=== PATIENT | female | born 1990 | race Caucasian/White ===

== ENCOUNTER → 2018-02-28 12:50 | Outpatient (CLI) | payer SELFPAY ==
--- NOTE | 2018-02-28 13:46 | US_ITS ---
STUDY: ULTRASOUND TRANSVAGINAL CLINICAL: Female, 27 years old. Pelvic pain. Dyspareunia. TECHNIQUE: Transvaginal COMPARISON: None. FINDINGS: The uterus is within normal limits in size and measures 8.0 x 4.1 x 3.2 cm with an endometrial stripe thickness of 3 mm. Both ovaries are visualized and demonstrate normal Doppler flow. The right measures 2.9 x 3.2 x 1.7 cm and the left 2.5 x 2.1 x 1.3 cm. There are no abnormal adnexal masses. A small amount of free fluid is in the cul-de-sac.. US/Pelvic (Non ) IMPRESSION: The study is within normal limits except for a small amount of free fluid in the cul-de-sac Electronically Signed: Anthony Ocampo MD at 4:22 EDT Tel , Service support ,
--- NOTE | 2018-02-28 13:47 | US_ITS ---
STUDY: ULTRASOUND TRANSVAGINAL CLINICAL: Female, 27 years old. Pelvic pain. Dyspareunia. TECHNIQUE: Transvaginal COMPARISON: None. FINDINGS: The uterus is within normal limits in size and measures 8.0 x 4.1 x 3.2 cm with an endometrial stripe thickness of 3 mm. Both ovaries are visualized and demonstrate normal Doppler flow. The right measures 2.9 x 3.2 x 1.7 cm and the left 2.5 x 2.1 x 1.3 cm. There are no abnormal adnexal masses. A small amount of free fluid is in the cul-de-sac.. US/Transvaginal Non- IMPRESSION: The study is within normal limits except for a small amount of free fluid in the cul-de-sac Electronically Signed: Anthony Ocampo MD at 4:22 EDT Tel , Service support ,
== END ==
PROVIDERS: Family Provider Physician Assistant; PCP Physician Assistant; Referring Provider Urology; Visit Provider Urology
DX: N39.0 Urinary tract infection, site not specified (principal); N94.12 Deep dyspareunia; R10.2 Pelvic and perineal pain
CPT/HCPCS: 76830; 76856

== ENCOUNTER → 2018-03-26 10:41 | Outpatient (CLI) | payer SELFPAY ==
--- NOTE | 2018-03-26 10:45 | US_ITS ---
STUDY: RENAL ULTRASOUND - COMPLETE REASON FOR EXAM: Female, 27 years old. Recurring UTI. Lower mid abdominal pain. TECHNIQUE: Ultrasound evaluation of the kidneys was performed with real-time and static johnson-scale imaging. COMPARISON: None. FINDINGS: RIGHT KIDNEY: Normal location of the right kidney, which is normal in size. The right kidney measures 11 cm. There is a normal cortex of the right kidney. The renal cortex measures 1.7 cm. There is no right renal mass or cyst. There are no right renal calculi. There is an extra-renal pelvis of the right kidney. There is no distention of the renal calyces. DISTAL RIGHT URETER: There is non-visualization of the distal right ureter. There is no demonstrated right ureterovesical junction calculus. There is a visualized right ureteral jet. LEFT KIDNEY: Normal location of the left kidney, which is normal in size. The left kidney measures 11.4 cm. There is a normal cortex of the left kidney. The renal cortex measures 1.7 cm. There is a 0.9 x 1.1 x 1.0 cm exophytic cyst off the mid cortex. There are no left renal calculi. There is no left hydronephrosis. DISTAL LEFT URETER: There is non-visualization of the distal left ureter. There is no demonstrated left ureterovesical junction calculus. There is a visualized left ureteral jet. The spleen appears mildly enlarged with a maximum diameter of 12.9 cm. There is no evidence of splenic mass. BLADDER: The distended urinary bladder has a volume of 159 ml. The empty urinary bladder has a volume of ml. There is a normal wall thickness of the distended urinary bladder. There is no demonstrated mass within the urinary bladder. There are no demonstrated bladder calculi. US/Kidney and Bladder IMPRESSION: 1. Left renal cyst. There is no other evidence of renal or urinary bladder abnormality. 2. Borderline splenomegaly. Electronically Signed: Hector Fay DO at 19:53 EST Tel [phone], Service support ,
== END ==
PROVIDERS: Family Provider Physician Assistant; PCP Physician Assistant; Referring Provider Urology; Visit Provider Urology
DX: N39.0 Urinary tract infection, site not specified (principal)
CPT/HCPCS: 76770

== ENCOUNTER → 2024-01-01 | Outpatient (CLI) | payer SELFPAY ==
--- NOTE | 2024-01-01 | IMM_PTH ---
PATIENT: HAL SHARIF LOC: [facility] U#:[id number] AGE/SX: 33/F ROOM: RE01/01/[address]: Dr. Juan J Pierre MD : 1990 BED: DIS: 01/01/2024 SPEC #: [id number] RECD: 01/03/24 11:12 STATUS: GOYO REQ #: [id number] RY: 01/01/24 00:[address]: Juan J Pierre DEPT: IMMUNOHISTOCHEMISTRY RECD BY: Kris Goodman ENTERED: 01/03/24 11:13 SP TYPE: IMMUNO OTHR DR: SHAREE Alejandre Tissues: C - Thyroid gland, NOS Procedures: HBME (initial) CD56 (add) CK19 (add) GAL-3 (add) PHYSICIAN & INSTITUTION [place] [phone] SPECIMEN INFORMATION: Tissue Source: C- Right lower thyroid nodule fluid Clinical Info: Right thyroid nodule Specimen Number: [id number] CPT code: 46322,32182q9 METHODOLOGY: Deparaffinized sections of prefer/formalin-fixed tissue or PAP/DQ stained slides are incubated with monoclonal/polyclonal antibodies/oligonucleotide probes. Localization is made via biotin free immunoperoxidase method. Appropriate controls are performed and reacted as expected. Results on target cell population are indicated in the following table: RESULTS: ANTIBODY / CLONE RESULT Block C HBME1 (HBME-1) positive, focal CK19 (A53-B/A2.26) positive GAL3 (9C4) negative CD56 (123C3.D5) positive These tests were developed and their performance characteristics determined by [facility]. They may not have been cleared or approved by the U.S. Food and Drug Administration. The FDA has determined that such clearance or approval is not necessary. The above immunohistochemical/dualISH markers are ordered and reviewed by the Pathologist. INTERPRETATION: C. Right thyroid nodule fluid, fine needle aspiration (cytospin and cellblock): Atypical follicular cells of undetermined significance. LADARIUS/ 01/04/2024
--- NOTE | 2024-01-01 14:00 | ASPIG_PTH ---
PATIENT: HAL SHARIF LOC: [facility] U#:[id number] AGE/SX: 33/F ROOM: RE01/01/[address]: Dr. Juan J Pierre MD : 1990 BED: DIS: 01/01/2024 SPEC #: [id number] RECD: 01/01/24 15:30 STATUS: GOYO TAVARES #: [id number] RY: 01/01/24 14:[address]: Juan J Pierre DEPT: CYTOLOGY RECD BY: Elvin Toledo ENTERED: 01/02/24 06:52 SP TYPE: ASP OUT OTHR DR: SHAREE Alejandre Tissues: A - Thyroid gland, NOS B - Thyroid gland, NOS C - Thyroid gland, NOS D - Thyroid gland, NOS Procedures: FNA Specimen Adequacy Special Stain Group II Surgery Specimen Level IV Cytology Other HEADER OPERATION: Fine needle aspiration of right thyroid nodule x2 PRE-OP DIAGNOSIS: Right thyroid nodule TISSUE SUBMITTED: A- Right mid polar thyroid nodule fluid, B- Right mid polar thyroid nodule slides, C- Right lower thyroid fluid, D- Right lower thyroid slides DIAGNOSIS CYTOLOGY A. Right mid polar thyroid nodule, fine needle aspiration (cytospin and cellblock): Negative for malignant cells. See comment. B. Right mid polar thyroid nodule, fine needle aspiration (smears): Non-diagnostic specimen, [place] Category I. Cyst fluid only. See comment. C. Right lower thyroid nodule fluid, fine needle aspiration (cytospin and cellblock): Atypical follicular cell with undetermined significance, [place] Category III. See comment. D. Right thyroid nodule, fine needle aspiration (smears): Atypical follicular cells with undetermined significance, [place] Category III. Adequate for evaluation. See comment. LADARIUS/ 01/03/2024 COMMENT A. This specimen is paucicellular and consists of a few macrophages. B. This specimen predominantly consists of macrophages. C. Immunohistochemistry ([id number]) supports the above diagnosis. Per recommendations and a clinician-approved plan (a call was made to the referring doctor about the recommendation), genomic testing (Afirma) has been submitted. Results will be reported as an addendum and faxed to clinician. Correlation with clinical, radiologic findings and appropriate follow up are necessary. Case has been reviewed in consultation with Dr. Ochoa who concurs with the above diagnosis. IDC:AM CYTOLOGY STUDY Slides are reviewed. CYTOLOGY GROSS A. Received is 30 ml of red fluid labeled with the patient's name and and designated per the requisition as Right mid polar thyroid nodule. Submitted for cytology preparation including cell block. B. Received are 4 smears labeled with the patient's name and designated per the requisition as Right mid polar thyroid nodule. Submitted for staining. C. Received is 30 ml of red fluid labeled with the patient's name and and designated per the requisition as Right lower thyroid nodule. Submitted for cytology preparation including cell block. D. Received are 4 smears labeled with the patient's name and designated per the requisition as Right lower thyroid nodule. Submitted for staining. 01/02/2024 TC:5 CPT: 17104f3,86453z0 ADDENDUM ADDENDUM ADDENDUM ADDENDUM ADDENDUM ADDENDUM ADDENDUM ADDENDUM ADDENDUM 02/23/2024 10:02 ADDENDUM 02/23/2024 10:02 ADDENDUM 02/23/2024 10:02 ADDENDUM 02/23/2024 10:02 ADDENDUM 02/23/2024 10:02 AFIRMA RESULTS REPORT RESULTS INTERPRETATION: The result of this 1.7 cm [place] III nodule C is Afirma GSC Suspicious which suggests a risk of cancer of approximately 50%. The risk of Malignancy of a GSC Suspicious Afirma XA negative sample remains approximately 50%. Clinical correlation and surgical resection should be considered. Please see complete report in e-chart or EMR
== END | disposition home or self-care (01) ==
PROVIDERS: PCP Physician Assistant; Referring Provider Surgery; Visit Provider Surgery
DX: E04.1 Nontoxic single thyroid nodule (principal)
CPT/HCPCS: 88161; 88172; 88305; 88313; 88341; 88342

== ENCOUNTER → 2024-01-25 | Outpatient (CLI) | payer SELFPAY ==
--- NOTE | 2024-01-25 13:25 | US_ITS ---
STUDY: THYROID ULTRASOUND REASON FOR EXAM: Female, 33 years old. Thyroid cancer, nodules TECHNIQUE: Ultrasound evaluation of the thyroid was performed with real-time and static brown-scale imaging. COMPARISON: None. FINDINGS: RIGHT LOBE: The right lobe of the thyroid gland measures 5.4 x 3 x 2.4 cm. There is a heterogeneous echotexture. Heterogeneous hypervascular mass with calcifications superior thyroid lobe on the right measuring 3.1 x 2.3 x 1.6 cm. There is also a 2.5 x 1.3 x 1.9 cm similar lesion in the inferior pole. LEFT LOBE: The left lobe of the thyroid gland measures 4.7 x 1.5 x 1.7 cm. There is a heterogeneous echotexture. Simple cystic lesion noted superiorly measuring 0.6 x 0.6 x 0.3 cm. ISTHMUS: The isthmus measures 0.25 cm . The regional lymph nodes are normal. US/Thyroid IMPRESSION: Thyroid goiter. Nuclear thyroid scan may be helpful for further characterization. FNA of the largest nodule recommended. Electronically Signed: Blair Verduzco MD at 0:42 EDT ,
== END | disposition home or self-care (01) ==
PROVIDERS: PCP Physician Assistant; Referring Provider Surgery; Visit Provider Surgery
DX: C73 Malignant neoplasm of thyroid gland (principal)
CPT/HCPCS: 76536

== ENCOUNTER → 2024-01-31 | Outpatient (CLI) | payer SELFPAY ==
--- NOTE | 2024-01-31 11:42 | US_ITS ---
EXAM: US Head/Neck Soft Tissue HISTORY: Evaluate Neck Zones -- Lymph node mapping COMPARISON: None FINDINGS: Sonographic evaluation of both halves of the neck There are scattered subcentimeter in short axis dimension lymph nodes present. Largest measured lymph nodes are in zone 3 of the left neck with the largest measuring 1.9 x 0.7 x 0.2 cm. In zone 6 of the right neck there is a hypoechoic mass measuring 1.3 x 0.9 x 0.5 cm, this does not have sonographic characteristics of a lymph node, instead has an echogenic structure within it measuring 3 x 5 mm with some microcalcifications and fluid. A short-term follow-up ultrasound of this is recommended to assess stability There are no suspicious enlarged bulky lymph nodes US/Head/Neck Soft Tissue IMPRESSION: No suspicious enlarged bulky lymph nodes. All measured lymph nodes measure less than 1 cm in short axis dimension and are likely physiologic. There is a hypoechoic 1.3 x 0.9 x 0.5 cm nodule in the right neck in zone 6 which does not demonstrate sonographic characteristics of a lymph node and short-term follow-up ultrasound is recommended to reassess Electronically Signed: Kimani Schwartz MD at 9:27 EDT ,
== END | disposition home or self-care (01) ==
PROVIDERS: PCP Physician Assistant; Referring Provider Surgery; Visit Provider Surgery
DX: E04.2 Nontoxic multinodular goiter (principal); E04.1 Nontoxic single thyroid nodule
CPT/HCPCS: 76536

== ENCOUNTER → 2024-02-22 | Outpatient (CLI) | payer SELFPAY ==
--- NOTE | 2024-02-22 | ASPIG_PTH ---
PATIENT: HAL SHARIF LOC: [facility] U#:[id number] AGE/SX: 33/F ROOM: RE02/22/[address]: Dr. Juan J iPerre MD : 1990 BED: DIS: 02/22/2024 SPEC #: [id number] RECD: 02/22/24 13:36 STATUS: GOYO TAVARES #: [id number] RY: 02/22/24 00:[address]: Juan J Pierre DEPT: CYTOLOGY RECD BY: Lamont Mejia ENTERED: 02/22/24 13:37 SP TYPE: ASP OUT OTHR DR: SHAREE Alejandre Tissues: A - Lymph node of neck, NOS B - Lymph node of neck, NOS Procedures: FNA Specimen Adequacy Special Stain Group II Surgery Specimen Level IV Surgery Specimen Level V Cytology Other HEADER OPERATION: Ultrasound guided lymph node biopsy PRE-OP DIAGNOSIS: Abnormal lymph node, Zone 3 (left), Zone 6 (right) TISSUE SUBMITTED: A- Right cervical lymph node, level 6, fine needle aspiration B- Left cervical lymph node, level 3, fine needle aspiration DIAGNOSIS CYTOLOGY A. Right cervical lymph node, zone 6, fine needle aspiration (smears, cytospin and cellblock): Negative for malignant cells. See comment. B. Left cervical lymph node, zone 3, fine needle aspiration (smears and cellblock): Negative for malignant cells. See comment. LADARIUS/ 02/23/2024 COMMENT The specimen is evaluated at the time of biopsy by Dr. Echeverria. Immediate Evaluation = A. Set #1: Bloody specimen, negative for malignant cells. Set #2: Bloody specimen, negative for malignant cells. Set #3: Bloody specimen, negative for malignant cells. B. Numerous lymphocytes are noted. A. This specimen is bloody. Lymphocytes are not seen. B. Numerous small lymphocytes are noted. This case was reviewed and diagnosis discussed with Dr. Pierre on 02/27/2024. Correlation with clinical, radiologic findings and appropriate follow up are necessary. Please also make reference to previous specimen [id number] right lower thyroid nodule fluid and smears, fine needle aspiration with diagnosis of atypical follicular cells of undetermined significance. CYTOLOGY STUDY Slides are reviewed. CYTOLOGY GROSS A. Set #1. Received from 2 passes are 5 smears, stained with diff quik stain for immediate evaluation and 5 smears submitted for pap staining and 0.7 ml of bloody fluid labeled with patient's name and and designated per the requisition as right cervical lymph node. zone 6 submitted for cytology study including cellblock preparation. Set #2. Received from 1 pass are 3 smears stained with diff quik stain for immediate evaluation and 3 smears submitted for pap staining and 0.2ml of bloody fluid labeled with the patient's name and and designated per the requisition as right cervical lymph node. zone 6 submitted for cytology study including cellblock preparation. Set #3. Received from 1 pass 2 smears submitted for diff quik stain for immediate evaluation and 2 smears submitted for pap staining and 0.2 ml of blood fluid labeled with the patient's name and and designated per the requisition as Right cervical lymph node zone 6. Submitted for cytology preparation including cell block. B. Received from two passed are 3 smears submitted for diff quik stain for immediate evaluation and 3 smears submitted for pap staining and 0.1 ml of bloody fluid labeled with the patient's name and and designated per the requisition as Left cervical lymph node. zone 3 Submitted cell block preparation. 02/22/2024 TC:5 CPT: 66190y5,36212h8,23731l7,46136f3,48827
--- NOTE | 2024-02-22 11:34 | US_ITS ---
STUDY: ULTRASOUND-GUIDED BIOPSY OF THE RIGHT APICAL NODULE. RIGHT REASON FOR EXAM: Female, 33 years old. ABNORMAL LYMPH NODE -RT TECHNIQUE: Under direct sonographic guidance, the surgeon performed ultrasound-guided biopsy of a 1.3 cm x 0.5 cm x 0.4 cm hypoechoic nodule in zone 6 of the right subapical region. COMPARISON: Comparison is made with prior study dated January 31, 2024. FINDINGS: Ultrasound-guided biopsy of a 1.3 cm x 0.5 cm x 2.4 cm hypoechoic nodule in zone 6 of the cervical region. Also biopsy of the 1.8 cm x 0.7 cm x 0.3 cm lymph node in zone 3. IMPRESSION: Ultrasound-guided right cervical nodules. Electronically Signed: Irving Osman MD at 14:23 EDT , STUDY: ULTRASOUND-GUIDED LEFT CERVICAL BIOPSY. LEFT REASON FOR EXAM: Female, 33 years old. ABNORMAL LYMPH NODE -RT TECHNIQUE: Under direct sonographic guidance, the surgeon performed biopsy of a lymph node in zone 3 of the left neck. COMPARISON: None. US/FNA 1st Biopsy w/ US IMPRESSION: Ultrasound-guided biopsy of the lymph node in zone 3 of the left side of the neck. Electronically Signed: Irving Osman MD at 14:24 EDT ,
[2024-02-22 12:30] VITALS: BP 121/68; PULSE 84; RESP 16; O2SAT 99
[2024-02-22 12:46] VITALS: BP 120/69; PULSE 83; RESP 14; O2SAT 97
[2024-02-22 13:00] VITALS: BP 113/69; PULSE 79; RESP 14; O2SAT 96
== END | disposition home or self-care (01) ==
PROVIDERS: PCP Physician Assistant; Referring Provider Surgery; Visit Provider Surgery
DX: R59.9 Enlarged lymph nodes, unspecified (principal)
CPT/HCPCS: 10005; 10006; 88161; 88172; 88305; 88307; 88313

== ENCOUNTER 2024-03-15 05:58 | Day surgery (SDC) | payer SELFPAY ==
--- NOTE | 2024-03-13 14:45 | NURSING ---
pt called to get home weatherizing worker name/number- pt sees a operations label clerk- info given to this nurse: shelbi wahl: [phone] operations label clerk called- and asked about care for pt/baby during/after/before surgery- she voiced concerns about pt having the surgery and how the baby is measureing and the fluid that mom is retaining- discussed with operations label clerk that this nurse is going to call dr gleason's office and have him call her to discuss these concerns. edna at dr. gleason's office took info and will let dr gleason know to call the operations label clerk to discuss the case.
[2024-03-15] VITALS (10 sets, daily range): BP systolic 101–116; BP diastolic 62–76; PULSE 77–109; RESP 16–18; TEMP 36.4–37.2; O2SAT 94–100; BMI 24.5
--- NOTE | 2024-03-15 | IMM_PTH ---
PATHOLOGY RESULTS PATIENT: HAL SHARIF LOC: [facility] [place] U#:[id number] AGE/SX: 33/F ROOM: RE03/15/[address]: Dr. Juan J Pierre MD : 1990 BED: DIS: 03/15/2024 SPEC #: [id number] RECD: 03/21/24 08:34 STATUS: GOYO REQ #: [id number] RY: 03/15/24 00:[address]: Juan J Pierre DEPT: IMMUNOHISTOCHEMISTRY RECD BY: Kris Goodman ENTERED: 03/21/24 08:35 SP TYPE: IMMUNO OTHR DR: SHAREE Alejandre Tissues: Thyroid gland, NOS Procedures: HBME (initial) CD56 (add) CK19 (add) GAL-3 (add) PHYSICIAN & INSTITUTION [place] [phone] SPECIMEN INFORMATION: Tissue Source: B- Right thyroid lobe and isthmus Clinical Info: Multiple thyroid nodules Specimen Number: [id number] CPT code: 82507,68831l19 METHODOLOGY: Deparaffinized sections of prefer/formalin-fixed tissue or PAP/DQ stained slides are incubated with monoclonal/polyclonal antibodies/oligonucleotide probes. Localization is made via biotin free immunoperoxidase method. Appropriate controls are performed and reacted as expected. Results on target cell population are indicated in the following table: RESULTS: ANTIBODY / CLONE RESULT Block B2 HBME1 (HBME-1) positive CK19 (A53-B/A2.26) positive GAL3 (9C4) positive CD56 (123C3.D5) positive Block B8 HBME1 (HBME-1) positive CK19 (A53-B/A2.26) positive GAL3 (9C4) positive CD56 (123C3.D5) positive Block B11 HBME1 (HBME-1) positive CK19 (A53-B/A2.26) positive GAL3 (9C4) positive CD56 (123C3.D5) positive These tests were developed and their performance characteristics determined by [facility]. They may not have been cleared or approved by the U.S. Food and Drug Administration. The FDA has determined that such clearance or approval is not necessary. The above immunohistochemical/dualISH markers are ordered and reviewed by the Pathologist. INTERPRETATION: B. Right thyroid lobe and isthmus, lobectomy and isthmectomy: Papillary thyroid carcinoma, classic type. See comment. COMMENT: The specimen was sent to [facility] for expert opinion and reviewed by Dr. Fenton and the above diagnosis is rendered. The complete report is viewable in the patient's EMR. This case has been reviewed in consultation with Dr. Butler who concurs with the above diagnosis. IDC:KARMA Matthew 03/27/2024
--- OUTSIDE RECORDS SUMMARY | 2024-03-15 06:01 | XMS RPT_ITS | CCD ---
Author Organization [facility] Care Team Providers Care Directory Carrier Name Role Phone Axel Burciaga MD Unavailable Axel Burciaga MD Unavailable Mehran DOVE, Dr. Hdz Unavailable Brad FERGUSON, Marguerite Morocho Unavailable [phone] [place] DOVE, Eber Perez Unavailable Jessie FERGUSON, Kurtis Howell Unavailable Alcon OCHOAN, Bhavani Unavailable Unavailable Amee GAY, Marbella Perez Unavailable Unavaila diogenes Mays MANUFACTURING TEAM LEADER, Rupa Unavailable Unavailable Cricket MANUFACTURING TEAM LEADER, Fredy Unavailable Unavailable Young FERGUSON, Jose E Morocho Unavailable Penny MANUFACTURING TEAM LEADER, Mariana Unavailable Unavailab tiffani Michaud LPN, Chanelle Unavailable Unavailabl e Unavailable Unavailable [facility] Unavailable Davina MANUFACTURING TEAM LEADER, Ana Rosa Unavailable Sophie MANUFACTURING TEAM LEADER, Maeve Monae Unavailable Unavailab JOSE E Murillo Attending Unavailable JOSE E VIDAL Primary Care Unavailable JOSE E VIDAL Admitting Unavailable JOSE E VIDAL Attending Unavailable JOSE E VIDAL Primary Care Unavailable JOSE E VIDAL Admitting Unavailable Mishel OCHOANStella Unavailable Unavailabl e Allergies Allergy Classification Reported Allergen(s) Allergy Type Date of Onset Reaction(s) Facility (18 sources) Magnesium *MINERALS & ELECTROLYTES* Rapid pulse [facility] Medications Current Medications Medication Drug Class(es) Dates Sig (Normalized) Sig (Original) amoxicillin 875 mg / clavulanate 125 mg oral tablet (2 sources) Penicillin-class Antibacterial Start: 02-21-2024 amoxicillin 875 mg-potassium clavulanate 125 mg tablet ; 1 (one) tablet BID for 7 days Quantity: 14 {Tablet} Refills: 0 Ordered: 21-Feb-2024 PHYLLIS Vidal Start: 21-Feb-2024 Completed/Discontinued Medications Medication Drug Class(es) Dates Sig (Normalized) Sig (Original) cephalexin 500 mg oral tablet (18 sources) Cephalosporin Antibacterial Start: 12-03-2021 End: 12-10-2021 take 2 tablets by mouth twice daily Cephalexin 500 MG Oral Tablet ; 2 (two) Tablet two times daily for 7 days Quantity: 28 {Tablet} Refills: 0 Ordered: 03-Dec-2021 PHYLLIS Salinas Start: 03-Dec-2021 End: 10-Dec-2021 Status: Inactive mupirocin 0.02 mg/mg topical ointment (18 sources) RNA Synthetase Inhibitor Antibacterial Start: 11-16-2022 End: 11-23-2022 mupirocin 2 % topical ointment ; 1 (one) Ointment three times daily for 7 days Quantity: 22 {Gram} Refills: 0 Ordered: 16-Nov-2022 PHYLLIS Roman Start: 16-Nov-2022 End: 23-Nov-2022 Status: Inactive sulfamethoxazole 800 mg / trimethoprim 160 mg oral tablet (18 sources) Dihydrofolate Reductase Inhibitor Antibacterial, Sulfonamide Antimicrobial Start: 01-28-2018 End: 01-31-2018 take 1 tablet by mouth twice daily Bactrim DS 800-160 MG Oral Tablet ; 1 (one) Tablet BID for 3 days Quantity: 6 {Tablet} Refills: 0 Ordered: 28-Jan-2018 MD Axel Burciaga Start: 28-Jan-2018 End: 31-Jan-2018 Status: Inactive Problems Active Problems Problem Classification Problem Date Documented Da te Episodic/Chronic Chronic obstructive pulmonary disease and bronchiectasis (4 sources) Bronchitis; Translations: [Bronchitis, not specified as acute or chronic] 02-21-2024 Episodic Genitourinary symptoms and ill-defined conditions (20 sources) History of urinary tract infection; Translations: [Personal history of urinary (tract) infections] 03-05-2020 Episodic Influenza (20 sources) Influenza due to Influenza A virus; Translations: [Influenza due to other identified influenza virus with other respiratory manifestations] 05-27-2021 Episodic Nonmalignant breast conditions (20 sources) Breast lump; Translations: [Unspecified lump in unspecified breast] 10-20-2023 Episodic Other upper respiratory infections (4 sources) Sinusitis; Translations: [Chronic sinusitis, unspecified] 02-21-2024 Chronic Ovarian cyst (20 sources) Cyst of ovary; Translations: [Unspecified ovarian cyst, unspecified side] Onset: 11-30-2023 10-20-2023 Episodic Residual codes; unclassified (20 sources) Family history of malignant neoplasm of breast in first degree relative; Translations: [Family history of malignant neoplasm of breast] 10-20-2023 Episodic Residual codes; unclassified (1 source) Family history of malignant neoplasm of breast; Translations: [Family history of malignant neoplasm of breast] Onset: 11-30-2023 Episodic Screening and history of mental health and substance abuse codes (20 sources) Patient encounter status; Translations: [Encounter for screening for depression] 10-20-2023 Episodic Skin and subcutaneous tissue infections (20 sources) Infection of skin; Translations: [Local infection of the skin and subcutaneous tissue, unspecified] 10-20-2023 Episodic Superficial injury; contusion (20 sources) Contusion of chest; Translations: [Contusion of unspecified front wall of thorax, initial encounter] 10-20-2023 Episodic Thyroid disorders (20 sources) Goiter; Translations: [Nontoxic goiter, unspecified] Onset: 11-30-2023 10-20-2023 Chronic Urinary tract infections (20 sources) Recurrent urinary tract infection; Translations: [Urinary tract infection, site not specified] 01-31-2018 Episodic Past or Other Problems Problem Classification Problem Date Documented Da te Episodic/Chronic Unclassified (18 sources) Well adult female - The patient feels well with no complaints. The first day of the last menstrual period was : (09/30/23). The patient has a balanced diet. The patient exercises 3 - 4 times per week. The patient sleeps 8 hours per night. Note for Well adult female : Estrogen receptor breast cancer in her 37 year old sister; told it was genetic but more details are not known. No other family history of breast cancer. No abnormal self breast exams. Grandma with possible ovarian mass remotely - details are unknown.Had a pap smear done by crochet machine operator. Thinks was within 3 years - even if due doesn't want to do today. 10-20-2023 Unclassified (18 sources) Rash - The rash has been occurring for 1 week. The rash is characterized as red. The rash was first seen on the face (Under right eye. Pt states looked like P.I. one week ago, cleaned area w/ lesly dish soap and turned black and blue. Has been using RENATO, does not itch but is not healing, scab keeps forming and keeps oozing.). There has been no progression. Note for Rash : Pt does not know where it came from. 11-16-2022 Unclassified (18 sources) Breast pain - The breast pain is in the right breast. The onset of the breast pain has been gradual and has been occurring in a persistent pattern for 5 days. The course has been constant. The breast pain is described as moderate. Note for Breast pain : pt has had a fever- the last day she had one was Monday night -- she said it was 105 that night pt is breast feeding her baby is 3 weeks old - she reports this has been going wellShe reports some redness and swelling in the right breast as well 12-03-2021 Unclassified (18 sources) Cold Symptoms - Symptoms include nasal congestion, runny nose, ear fullness, scratchy throat, dry cough, fever (around 100+ at home), chills, general malaise (fatigue and body aches), headache and facial pain, but do not include sneezing, ear pain, sore throat, hoarseness, productive cough or wheezing. The onset was gradual week(s) ago (1 wk ago started with tickle in throat States as of Monday all other symptoms have started.). The symptoms occur constantly. The patient describes this as moderate in severity and worsening. Current treatment includes none (herbs). Risk factors do not include child in daycare or smoking. The patient has been exposed to an individual with an upper respiratory infection and an individual with similar symptoms (her mother), but has not been exposed to an individual with strep or secondhand smoke. Patient denies history of seasonal allergies, recurrent sinusitis, recurrent strep pharyngitis, asthma, tonsillectomy or recurrent ear infections. Note for Upper respiratory infection : No known contact with positive COVID or influenza 05-27-2021 Unclassified (18 sources) Shoulder pain - The shoulder pain has been occurring in a persistent pattern for 8 days (patient was walking through a doorway, when she tripped and feel forward on cement and came down on the right shoulder area). The course has been gradually worsening (getting worse since Monday. Patient reached down to grab a bowel that was empty and felt a pop of the right upper chest(clavicle area).). The pain is characterized as a dull aching (becomes sharper with movement/lifting). The pain is described as being located in the right shoulder (right side) and is aggravated by any movement. Relieving factors include rest and medication (Tylenol and Aleve). The symptoms have been associated with painful ROM and decreased ROM. Note for Shoulder pain : Patient did see a chiropractor over the weekend but no xrays done.Has a 4 1/2 month old child that she is . 03-05-2020 Unclassified (18 sources) UTI - Symptoms include dysuria, urinary frequency, urinary urgency and abdominal pain (today), but do not include back pain. The pain is located in the suprapubic area. The patient describes the pain as aching. Onset was gradual 3 day(s) ago. The symptoms occur constantly. The patient describes this as moderate in severity and worsening. Associated symptoms do not include fever, chills, nausea or vomiting. Note for UTI : Had UTI end of October - that was her first; symptoms resolved with abx (unsure which one she was on). [place]ers good until just recently.Got about 5 months ago.Anticipating period to start next week. 01-19-2018 Unclassified (2 sources) Cold Symptoms - Symptoms include dry cough and productive cough. The onset was gradual 1 month(s) ago. The symptoms occur constantly. The patient describes this as moderate in severity and unchanged. Current treatment includes home remedies. Note for Upper respiratory infection : Patient states she has been struggling with a cold for around a month now. Patient is 16 weeks and has been limited on what she can do/take. Would like to have her lungs checked today as well.Cough isn't as bad as it was at one point. Some sinus pressure through the cheeks. Thought initially it was allergies.No known ill contacts.Has tried taking something for allergies but it lowered her blood sugar - it was herb.+ nasal drainage and PND - sometimes purulent. 02-21-2024 Urinary tract infections (18 sources) Urinary tract infections 11-20-2017 Results Test Name Value Interpretation Reference Range Facility CALCIUMon 12-06-2023 Calcium [Mass/Vol] 9.3 mg/dL Normal 8.6-10.2 [facility] Comment on above: Performed By: #### 8 , 866, 859, 303 #### [facility] [place] [address] Stone Lathe Operator: Kejni Mello MD T3, TOTALon 12-06-2023 T3, TOTAL 103 ng/dL Normal 76-181 [facility] Comment on above: Performed By: #### 8 , 86, 859, 303 #### [facility] [place] [address] Stone Lathe Operator: Kenji Mello MD T4 (THYROXINE), TOTALon 11-19 T4 [Mass/Vol] 9.9 ug/dL Normal 5.1-11.9 [facility] Comment on above: Performed By: #### 8 , 866, 859, 303 #### [facility] [place] [address] Stone Lathe Operator: Kenji Mello MD T4, FREEon 12-06-2023 Free T4 [Mass/Vol] 1.5 ng/dL Normal 0.8-1.8 [facility] Comment on above: Performed By: #### 8 , 86, 859, 303 #### [facility] [place] [address] Stone Lathe Operator: Kenji Mello MD TSHon 12-06-2023 TSH Qn 1.51 m[IU]/L Normal [facility] Comment on above: Result Comment: Refe rence Range > or = 20 Years 0.40-4.50 Ranges First trimester 0.26-2.66 Second trimester 0.55-2.73 Third trimester 0.43-2.91 Performed By: #### 8 , 866, 859, 303 #### [facility] [address], [address] [place] [address] Stone Lathe Operator: Kenji Mello MD Laboratory - Chemistry and C hemistry - challengeon 12-05-2023 Calcium [Mass/Vol] 9.3 mg/dL Normal 8.6 - 10. 2 mg/dL [facility]. Free T4 [Mass/Vol] 1.5 ng/dL Normal 0.8 - 1.8 ng/dL [facility]. T4 [Mass/Vol] 9.9 ug/dL Normal 5.1 - 11.9 ug/dL [facility]. TSH Qn 1.51 m[IU]/L Normal [facility]; [facility]. No Panel Informationon 12-04 T3, TOTAL 103 ng/dL Normal 76 - 181 ng/dL [facility] MR BREAST BILATERAL W/WO CON TRASTon 11-30-2023 MR BREAST BILATERAL W/WO CONTRAST [place] [address] Patient: KAROLYN SHARIF Phone#: : 1990 Age: 33 Gender: F Pt. Type: Out Account: [id number] Location: Ordering: [facility] Exam Date: 11/30/2023/10:19 Family Phys: Charge Code: [id number] Physician: Donley Order #: [id number] Dose#: PROCEDURE: MRI BREAST BILAT WITH AND WITHOUT CONTRAST COMPARISON: None. INDICATIONS: Family history of breast cancer TECHNIQUE: Breast MRI was performed before and after using dynamic intravenous gadolinium infusion, thin sections, and a dedicated breast coil. ENHANCEMENT PATTERN: None or minimal, with <25% of glandular tissue demonstrating enhancement. FINDINGS: DIAGNOSTIC CATEGORY 0--INCOMPLETE: NEED ADDITIONAL IMAGING EVALUA dynamic enhancement is present. Further evaluation by ultrasound is recommended. ON. RIGHT BREAST: In the superior medial right breast is enhancing focus measuring 5 by 5 x 5 millimeters. Type 2 enhancement is demonstrated. RECOMMENDATIONS: ULTRASOUND: RIGHT BREAST --We will call the patient back for an ultrasound and provide an additional report. PLEASE NOTE: A NORMAL MRI DOES NOT EXCLUDE THE POSSIBILITY OF BREAST CANCER. A CLINICALLY SUSPICIOUS PALPABLE LUMP SHOULD BE BIOPSIED. Dictated by: Grace Byrne MD on 12/05/2023 at 14:28 Approved by: Grace Byrne MD on 12/05/2023 at 15:00 [facility] PELVICon 11-30-2023 [place] [address] Patient: KAROLYN SHARIF Phone#: : 1990 Age: 33 Gender: F Pt. Type: Out Account: [id number] Location: Ordering: [facility] Exam Date: 11/30/2023/11:55 Family Phys: Charge Code: [id number] Physician: Donley Order #: [id number] Dose#: PROCEDURE: PELVIC ULTRASOUND, TRANSABDOMINAL COMPARISON: None. INDICATIONS: Pelvic mass TECHNIQUE: Pelvic ultrasound was performed in the usual manner. FINDINGS: UTERUS: Size is 9.9 x 3.9 x 5.0 cm with unremarkable appearance. Endometrial thickness is 13.5 mm. ADNEXAE: Normal bilateral appearance with no significant masses. Each ovary is normal in size for a patient of this age. CUL-DE-SAC: Normal. No fluid or mass. OTHER: Negative. CONCLUSION: 1. The uterus is unremarkable. 2. Endometrium is 13.5 millimeters in thickness. Dictated by: Grace Byrne MD on 11/30/2023 at 13:20 Approved by: Grace Byrne MD on 11/30/2023 at 13:22 [facility] THYROIDon 11-30-[address] [address] Patient: BISHOP SHARIFA Phone#: : 1990 Age: 33 Gender: F Pt. Type: Out Account: [id number] Location: Ordering: JOSE E VIDAL Exam Date: 11/30/2023/12:06 Family Phys: Charge Code: [id number] Physician: Donley Order #: [id number] Dose#: PROCEDURE: THYROID ULTRASOUND COMPARISON: None. INDICATIONS: Enlarged thyroid TECHNIQUE: High-resolution ultrasound was performed of the thyroid gland. FINDINGS: RIGHT LOBE: The right lobe of the thyroid demonstrates diffuse punctate echogenicities. Within the right lobe is a large heterogeneously hypoechoic irregular nodule measuring 28 x 20 x 22 mm. This is a TR 5, highly suspicious nodule A 2nd similar nodule is in the lower pole measuring 17 x 11 x 11 mm. The right lobe measures 4.6 x 2.5 x 2.8 cm. This is a TR 5, highly suspicious nodule. LEFT LOBE: The left lobe demonstrates diffuse punctate echogenicities. There is a cyst in the upper pole measuring 5 x 2 x 5 mm, TR 1. Left lobe measures 4.5 x 1.4 x 1.6 cm ISTHMUS: Normal. No visible mass, cyst, calcification, enlargement, or abnormal echotexture. Isthmus measures 0.3 cm. OTHER: None. CONCLUSION: 1. Two right-sided TR 5, highly suspicious, nodules recommend fine needle aspiration. Dictated by: Heide Cross MD on 11/30/2023 at 15:31 Approved by: Heide Cross MD on 11/30/2023 at 15:41 Normal [facility] Laboratory - Microbiology an d Antimicrobial susceptibilityon 05-27-2021 FLUAV Ag IA Ql (Throat) Negative Normal [employer], [employer] [employer], [employer]. FLUAV Ag IA Ql (Throat) Positive Abnormal [employer] [employer] [employer] Laboratory - Chemistry and C hemistry - challengeon 01-19-2018 Bilirubin Ql (U) Negative Normal [email or web address], [employer] [employer] [employer]. Ketones Ql (U) Negative [email or web address] [employer] [employer] pH (U) 6.5 [pH] Normal [employer].; [employer], [employer]. Specific gravity (U) [Rel density] 1.025 Normal [place] [employer]. Urobilinogen Qn (U) 0.2 mg/dL [facility]. Laboratory - Hematology and Cell countson 01-19-2018 Hemoglobin Ql (U) small Abnormal [place] [employer].; [employer]. Laboratory - Microbiology an d Antimicrobial susceptibilityon 01-19-2018 Bacteria identified Cx Nom (Unsp spec) Normal [facility]. Laboratory - Specimen inform ationon 01-19-2018 Appearance (U) clear Normal [facility] [place] Color (U) yellow Normal [place] [employer]; [employer]. Specimen source Nom (Unsp spec) URINE Normal [place] [employer].; [employer]. Laboratory - Urinalysison Glucose Test strip (U) [Mass/Vol] Negative Normal [place] [employer].; [employer]. Leukocyte esterase Test strip Ql (U) trace Normal [place] [employer].; [employer]. Protein Ql (U) Negative Normal [facility] [employer]. Laboratory - UrinalysisOrder ed By: Chanelle Michaud on 01-19-2018 Nitrite Ql (U) Negative Normal [facility] [employer]. Laboratory - Chemistry and C hemistry - challengeon 11-20-2017 Bilirubin Ql (U) Negative [facility] [employer]. Ketones Ql (U) Negative Normal [facility] [employer]. pH (U) 6.0 [pH] Normal [place] [employer].; [employer]. Specific gravity (U) [Rel density] 1.030 Abnormal [place] [employer].; [employer]. Urobilinogen Qn (U) .2 mg/dL Normal [facility] [employer] [facility].; [place]. Laboratory - Hematology and Cell countson 11-20-2017 Hemoglobin Ql (U) Negative Normal [facility].; [employer]. Laboratory - Specimen inform ationon 11-20-2017 Appearance (U) Clear Normal [employer].; [employer]. Color (U) yellow Normal [facility].; [employer]. Laboratory - Urinalysison Glucose Test strip (U) [Mass/Vol] Negative Normal [employer].; [employer]. Leukocyte esterase Test strip Ql (U) Negative Normal [employer].; [employer]. Nitrite Ql (U) Negative Normal [facility] [employer]. Protein Ql (U) Negative Normal [facility].; [employer]. Vital Signs Date Time Vital Sign Value Performing Clinician Facility 02-21-2024 11:18040 Body height 168.91 cm Stella Florentino MANUFACTURING TEAM LEADER [place] [employer] [facility], [employer].; [employer]. 02-21-2024 11:18-0400 Body mass index (BMI) [Ratio] 23.37 kg/m2 Stella Florentino [facility] [employer] [facility].; [employer], [employer]. 02-21-2024 11:18-0400 Body surface area Derived from formula 1.76 m2 Stella Florentino MANUFACTURING TEAM LEADER [facility], [facility].; [employer]. 02-21-2024 11:18-0400 Body temperature 98.1 [degF] Stella Florentino [facility] [employer] [facility].; [employer]. Comment on above: Method: Tympanic 02-21-2024 11:180400 Body weight 66.68 kg Stella Florentino [facility] [employer] [facility].; [place]. 02-21-2024 11:18-0400 Diastolic blood pressure 69 mm[Hg] Stella Florentino [facility] [employer] [facility], [facility].; [employer]. Comment on above: Patient Position: Sitting; Cuff Location : Left Arm; Cuff Size: Standard 02-21-2024 11:18-0400 Heart rate 76 /min Stella Florentino MANUFACTURING TEAM LEADER [facility].; [facility]. Comment on above: Pattern: Regular 02-21-2024 11:18-0400 Inhaled oxygen concentration 21 % Stella Florentino [facility].; [facility], [facility]. Comment on above: Room air 02-21-2024 11:18-0400 SaO2% (BldA) [Mass fraction] 99 % Stella Florentino MANUFACTURING TEAM LEADER [facility].; [facility], [facility]. 02-21-2024 11:18-0400 Systolic blood pressure 108 mm[Hg] Stella Florentino MANUFACTURING TEAM LEADER [facility].; [facility], [employer]. Comment on above: Patient Position: Sitting; Cuff Location : Left Arm; Cuff Size: Standard 10-20-2023 08:[id number] Body height 168.91 cm Fredy Harley LPN [facility].; [facility], [facility]. 10-20-2023 08:280400 Body mass index (BMI) [Ratio] 23.21 kg/m2 Fredy Cricket [facility].; [facility], [facility]. 10-20-2023 08:28040 Body surface area Derived from formula 1.76 m2 Fredy Cricket MANUFACTURING TEAM LEADER [facility].; [facility], [facility]. 10-20-2023 08:[id number] Body weight 66.23 kg Fredy Cricket MANUFACTURING TEAM LEADER [facility].; [facility]. 10-20-2023 [id number] Diastolic blood pressure 61 mm[Hg] Fredy Harley LPN [facility].; [facility], [facility]. Comment on above: Patient Position: Sitting; Cuff Location : Left Arm; Cuff Size: Standard 10-20-2023 08:28-0400 Heart rate 96 /min Fredy Cricket MANUFACTURING TEAM LEADER [facility], [facility].; [place] [employer] [facility], [facility]. Comment on above: Pattern: Regular 10-20-2023 08:28-0400 Systolic blood pressure 106 mm[Hg] Fredy Cricket MANUFACTURING TEAM LEADER [facility], [facility].; [place] [employer] [facility], [employer]. Comment on above: Patient Position: Sitting; Cuff Location : Left Arm; Cuff Size: Standard 11-16-2022 16:14-0400 Body weight 62.6 kg Fredy Harley LPN [facility]. 11-16-2022 16:14-0400 Diastolic blood pressure 72 mm[Hg] Fredy Harley LPN [facility] [place] [employer] [facility] Comment on above: Patient Position: Sitting; Cuff Location : Left Arm; Cuff Size: Standard 11-16-2022 16:14-0400 Heart rate 65 /min Fredy Harley LPN [facility], [facility].; [place] [employer] [facility], [facility]. Comment on above: Pattern: Regular 11-16-2022 16:14-0400 Systolic blood pressure 115 mm[Hg] Fredy Harley LPN [facility].; [place] [employer] [facility] Comment on above: Patient Position: Sitting; Cuff Location : Left Arm; Cuff Size: Standard 12-03-2021 08:48-0400 Body height 168.91 cm Bhavani Rondon LPN [facility], [facility].; [place] [employer] [facility], [facility]. 12-03-2021 08:48-0400 Body mass index (BMI) [Ratio] 21.94 kg/m2 Bhavani Rondon LPN [facility]. 12-03-2021 08:48-0400 Body surface area Derived from formula 1.72 m2 Bhavani Rondon LPN [facility].; [facility]. 12-03-2021 08:48-0400 Body weight 62.6 kg Bhavani Rondon LPN [facility].; [place] [employer] [facility], [facility]. 12-03-2021 08:48-0400 Diastolic blood pressure 70 mm[Hg] Bhavani Rondon LPN [facility], [facility] [place] [employer], [employer]. Comment on above: Patient Position: Sitting; Cuff Location : Left Arm; Cuff Size: Standard 12-03-2021 08:48-0400 Heart rate 79 /min Bhavani Rondon LPN [facility], [facility].; [employer], [employer]. Comment on above: Pattern: Regular 12-03-2021 08:48-0400 Systolic blood pressure 104 mm[Hg] Bhavani Rondon MANUFACTURING TEAM LEADER [facility], [facility].; [facility]. Comment on above: Patient Position: Sitting; Cuff Location : Left Arm; Cuff Size: Standard 05-27-2021 14:32-0500 Body height 168.91 cm Rupaursula Mays [facility], [facility].; [facility] 05-27-2021 14:32-0500 Body mass index (BMI) [Ratio] 21.46 kg/m2 Rupa Shilpameme [facility], [facility].; [place] [employer] [facility], [facility]. 05-27-2021 14:32-0500 Body surface area Derived from formula 1.7 m2 [facility]. 05-27-2021 14:32-0500 Body temperature 100.2 [degF] Rupa Shilpameme [facility], [facility].; [place] [employer] [facility], [employer]. Comment on above: Method: Tympanic 05-27-2021 14:32-0500 Body weight 61.24 kg Rupaursula Masseymeme [facility], [facility].; [facility] 05-27-2021 14:32-0500 Diastolic blood pressure 75 mm[Hg] Rupa Shilpameme [facility], [facility].; [place] [employer], [employer]. Comment on above: Patient Position: Sitting; Cuff Location : Left Arm; Cuff Size: Standard 05-27-2021 14:32-0500 Heart rate 116 /min Rupa M[facility], [facility].; [facility]. Comment on above: Pattern: Regular 05-27-2021 14:32-0500 Inhaled oxygen concentration 21 % [facility] [place] [employer] [facility], [employer]. Comment on above: Room air 05-27-2021 14:32-0500 SaO2% (BldA) [Mass fraction] 98 % Rupaursula Baileymeme [facility], [facility].; [place] [employer] 05-27-2021 14:32-0500 Systolic blood pressure 111 mm[Hg] Rupa Mays [facility], [facility].; [place]. Comment on above: Patient Position: Sitting; Cuff Location : Left Arm; Cuff Size: Standard 03-05-2020 09:33-0400 Body height 168.91 cm Marbella Lubin RN [facility] [place]. 03-05-2020 09:33-0400 Body mass index (BMI) [Ratio] 19.56 kg/m2 Marbella Lubin RN [employer] [facility].; [employer]. 03-05-2020 09:33-0400 Body surface area Derived from formula 1.64 m2 Marbella Lubin RN [employer].; [employer]. 03-05-2020 09:33-0400 Body temperature 99.2 [degF] Marbella Lubin RN [employer].; [place]. Comment on above: Method: Tympanic 03-05-2020 09:33-0400 Body weight 55.79 kg Marbella Lubin RN [place] [employer].; [place]. 03-05-2020 09:33-0400 Diastolic blood pressure 56 mm[Hg] aMrbella Lubin RN [employer].; [place]. Comment on above: Patient Position: Sitting; Cuff Location : Left Arm; Cuff Size: Standard 03-05-2020 09:33-0400 Heart rate 75 /min Marbella Lubin RN [employer].; [place]. Comment on above: Pattern: Regular 03-05-2020 09:33-0400 Systolic blood pressure 108 mm[Hg] Marbella Lubin RN [employer].; [place]. Comment on above: Patient Position: Sitting; Cuff Location : Left Arm; Cuff Size: Standard 01-19-2018 13:08-0400 Body height 168.91 cm Chanelle Michaud LPN [employer] [facility] [place]. 01-19-2018 13:08-0400 Body mass index (BMI) [Ratio] 19.63 kg/m2 Chanelle Michaud LPN [place] [employer].; [place] [employer] [facility] 01-19-2018 13:080400 Body surface area Derived from formula 1.64 m2 Chanelle Torresvarun [facility], [facility].; [place] [employer] 01-19-2018 13:080400 Body temperature 97.3 [degF] Chanelle Torresvarun [facility], [facility].; [employer], [employer]. Comment on above: Method: Tympanic 01-19-2018 13:080400 Body weight 56.02 kg Chanelle Jaswant [facility] [employer] [facility], [facility].; [employer]. 01-19-2018 13:08-0400 Diastolic blood pressure 70 mm[Hg] Chanelle [facility] [employer], [employer]. Comment on above: Patient Position: Sitting; Cuff Location : Left Arm; Cuff Size: Standard 01-19-2018 13:08-0400 Heart rate 81 /min Chanelle Brianvarun [facility], [facility].; [employer]. Comment on above: Pattern: Regular 01-19-2018 13:08-0400 Systolic blood pressure 113 mm[Hg] Chanelle Torresvarun [facility] [employer] [facility], [facility].; [place] [employer], [employer]. Comment on above: Patient Position: Sitting; Cuff Location : Left Arm; Cuff Size: Standard 11-20-2017 14:52-0400 Body height 168.91 cm Axel Burciaga MD Work Phone: [place] [employer] [facility].; [employer]. 11-20-2017 14:52-0400 Body mass index (BMI) [Ratio] 19.08 kg/m2 Axel Burciaga MD Work Phone: [place] [employer].; [employer]. 11-20-2017 14:52-0400 Body surface area Derived from formula 1.62 m2 Axel Burciaga MD Work Phone: [place] [employer].; [employer]. 11-20-2017 14:52-0400 Body temperature 99.7 [degF] Axel Burciaga MD Work Phone: [employer]; [place]. Comment on above: Method: Tympanic 11-20-2017 14:52-0400 Body weight 54.43 kg Axel Burciaga MD Work Phone: [place].; [place]. 11-20-2017 14:52-0400 Diastolic blood pressure 65 mm[Hg] Axel Burciaga MD Work Phone: [employer]; [place]. Comment on above: Patient Position: Sitting; Cuff Location : Left Arm; Cuff Size: Large 11-20-2017 14:52-0400 Heart rate 74 /min Axel Burciaga MD Work Phone: [employer]; [place]. Comment on above: Pattern: Regular 11-20-2017 14:52-0400 Systolic blood pressure 128 mm[Hg] Axel Burciaga MD Work Phone: [employer]; [place]. Comment on above: Patient Position: Sitting; Cuff Location : Left Arm; Cuff Size: Large Encounters Encounter Date Encounter Type Care Provider Facility Start: 02-21-2024 End: 02-21-2024 Office outpatient visit 15 minutes Axel Burciaga MD Work Phone: [employer] Start: 12-07-2023 End: 12-07-2023 ambulatory [facility] Start: 12-04-2023 End: 12-06-2023 Orders Axel Burciaga MD Work Phone: [employer] Start: 12-04-2023 Review Axel escobar MD Work Phone: [employer] [facility] Start: 12-01-2023 End: 12-01-2023 Orders Axel Burciaga MD Work Phone: [employer] Start: 11-30-2023 End: 11-30-2023 ambulatory [facility] Start: 10-20-2023 End: 10-20-2023 Orders Axel Burciaga MD Work Phone: [employer] Start: 10-20-2023 End: 10-20-2023 Patient encounter procedure Axel Burciaga MD Work Phone: [employer]; [place]. Start: 10-20-2023 End: 10-20-2023 Periodic preventive med est patient 18-39 yrs Axel Burciaga MD Work Phone: [employer] Start: 11-16-2022 End: 11-16-2022 Office outpatient visit 15 minutes Axel Burciaga MD Work Phone: [employer] Start: 12-03-2021 End: 12-03-2021 Office outpatient visit 15 minutes Axel Burciaga MD Work Phone: [employer] Start: 05-27-2021 End: 05-27-2021 Office outpatient visit 15 minutes Axel Burciaga MD Work Phone: [employer] Start: 03-05-2020 End: 03-05-2020 Office outpatient visit 15 minutes Axel Burciaga MD Work Phone: [employer] Start: 01-31-2018 End: 01-31-2018 Orders Axel Burciaga MD Work Phone: [employer] [facility] Start: 01-28-2018 End: 01-28-2018 Orders Axel Burciaga MD Work Phone: [employer] Start: 01-19-2018 End: 01-19-2018 Office outpatient visit 10 minutes Axel Burciaga MD Work Phone: [employer] Start: 11-20-2017 End: 11-20-2017 Office outpatient visit 15 minutes Axel Burciaga MD Work Phone: [employer] Patient encounter procedure Jose E Vidal PA-C Work Phone: [place].; [facility] Procedures Date Procedure Procedure Detail Performing Clinician Start: 10-20-2023 End: 10-20-2023 Depression screening Jose E Bailee Chavez Work Phone: Start: 10-20-2023 End: 12-06-2023 Mri breast without&with contrast w/cad bilateral Jose E Bailee Vdial PA-C Work Phone: Start: 10-20-2023 End: 10-20-2023 Scr dep neg, no plan reqd Jose E Morocho Jessica ruano PA-C Work Phone: Start: 10-20-2023 End: 11-30-2023 Us pelvic nonobstetric real-time image complete Jose E Bailee Vidal PA-C Work Phone: Comment on above: During previous preg yvonne approx 2 years ago there was concern for ovarian cyst or fibroid - they couldn't tell for sure but recommended she have an US before future pregnancies. Start: 10-20-2023 End: 12-01-2023 Us soft tissue head & neck real time imge docm Jose E Bailee Vidal PA-C Work Phone: Plan of Treatment Date Care Activity Detail Author Start: 12-05-2023 Assay of free thyroxine [facility]; [facility] Start: 12-05-2023 Assay of thyroid sti mulating hormone tsh [facility]; [facility] Start: 12-05-2023 Assay of thyroxine total [facility]; [facility] Start: 12-05-2023 Assay of triiodothyr onine t3 total tt3 [facility]; [facility], [facility] Start: 12-05-[address] [facility]; [facility], [facility] Start: 10-20-2023 Mri breast without&w ith contrast w/cad bilateral MRI BREAST BILATERAL W CONTRAST (28044) Start: 20-Oct-2023 Intent [facility]; [facility] Start: 10-20-2023 Us pelvic nonobstetr ic real-time image complete Pelvic Ultrasound ([id number]) Start: 20-Oct-2023 Intent Comments: During previous approx 2 years ago there was concern for ovarian cyst or fibroid - they couldn't tell for sure but recommended she have an US before future pregnancies. [place] [place]. Comment on above: During previous preg yvonne approx 2 years ago there was concern for ovarian cyst or fibroid - they couldn't tell for sure but recommended she have an US before future pregnancies. Start: 10-20-2023 Us soft tissue head & neck real time [facility] Thyroid Ultrasound (45548) Start: 20-Oct-2023 Intent [place].; [employer] Payers Date Payer Category Payer Unknown [id number] Unknown Social History Date Type Detail Facility Tobacco Use: Tobacco Use: ; Never smoker. [employer]; [employer] Female [employer]; [employer] Work Phone: Never smoked tobacco [employer]; [employer] Work Phone: Summary Purpose Family History No Family History Records FoundNo Family History Records Found Advance Directives No Advanced Directives Records FoundNo Advanced Directives Records Found Additional Source Comments INFORMATION SOURCE (unrecogn ized section and content) DATE CREATED AUTHOR 12/09/2023 [facility] DATE CREATED AUTHOR AUTHOR'S ORGANIZ ATION 12/10/2023 [facility] FOR RECORDS PERTAINING TO PATIENTS WHO ARE OR HAVE BEEN ENROLLED IN A CHEMICAL DEPENDENCY/SUBSTANCEABUSE PROGRAM, SOME INFORMATION MAY BE OMITTED. This clinical summary was aggregated from multiple sources. Caution should be exercised in using it in the provision of clinical care. This summary normalizes information from multiple sources, and as a consequence, information in this document may materially change the coding, format and clinical context of patient data. In addition, data may be omitted in some cases. CLINICAL DECISIONS SHOULD BE BASED ON THE PRIMARY CLINICAL RECORDS. [employer] [facility]. provides no warranty or guarantee of the accuracy or completeness of information in this document.
--- NOTE | 2024-03-15 06:36 | PRE.ANES_ITS ---
ASA Classification* ASA Classification ASA Classification: 2 Assessment & Plan Anesthesia* Anesthesia Assessment Anesthesia Assessment: Discussed sedation and/or anesthesia options, risks, benefits, and alternatives with patient/parents/legal guardian/POA. Questions invited. The patient/parents/legal guardian/POA seems to understand and agrees to proceed with anesthesia plan. Reviewed the physical assessment, medical history, allergy history and patient home medications list prior to surgery/procedure/anesthetic and documented any changes. Performed airway and anesthesia risk assessments. 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 When Was Last Pacemaker Check QUESTION #4 FULL TEXT: You/Your Family Experience fever (hyperthermia) with Anesthesia Last Oral Intake Last Oral intake: Last Oral Intake NPO since Meds taken in AM with sips of water? Meds patient instructed to take am of surgery PONV PONV - billboard poster helper: PONV - billboard poster helper Female Yes 03/06/24 13:56 HX of Motion Sickness No 03/06/24 13:56 HX of N/V After Surgery No 03/06/24 13:56 Non-Smoker Yes 03/06/24 13:56 Duration of Surgery greater Yes 03/06/24 13:56 than 60 minutes Number of Risk Factors 3 03/06/24 13:56 PONV Score Moderate Risk 03/06/24 13:56 Height & Weight Height & Weight: Anesthesia: Height & Weight Height 5 ft 5 in 01/01/24 13:57 Respiratory Assessment Respiratory Assessment - billboard poster helper: Respiratory Tract Infection Hx - billboard poster helper Hx Respiratory Tract Infection Yes: DRY COUGH/HEAD COLD/ 03/06/24 13:56 TREATED/MUCH IMPROVED PER PATIENT STOP Sleep Apnea STOP Sleep Apnea - billboard poster helper: STOP Sleep Apnea - billboard poster helper Hx Hypertension No 03/06/24 13:56 Hx Sleep Apnea No 03/06/24 13:56 CPAP BIPAP Do you snore loudly (louder No 03/06/24 13:56 than talking or can be heard Do you often feel tired/ No 03/06/24 13:56 fatigued/ sleepy during daytime? Has anyone observed you stop No 03/06/24 13:56 breathing during sleep? STOP Results Negative 03/06/24 13:56 QUESTION #5 FULL TEXT : Do you snore loudly (louder than talking or can be heard through closed doors)? Tobacco Use History Tobacco Use History - billboard poster helper: Tobacco Use History - billboard poster helper Tobacco Use Smoking Status Never smoker 03/06/24 13:56 Hx Tobacco Use No 03/06/24 13:56 Years Smoking Packs Smoked per Day Smoking Cessation Date was within the last 15 years Hx Smoking Cessation Date Hx Smoking Cessation Counseling Hematologic Medial History Hematologic Hx - billboard poster helper: Hematologic Medical Hx - decorator mannequin Hx of Blood Transfusion Yes 03/06/24 13:56 Hx of Transfusion in last 3 No 03/06/24 13:56 Months Date of Last Transfusion (if within last 3 months) Ever experience any problems No 03/06/24 13:56 with transfusion(s)? Specify any problems Hx of Preganancy in last 3 Yes 03/06/24 13:56 Months Nurse Filling Out Transfusion DSCHRIBER 03/06/24 13:56 & Questions: Date: 03/06/24 03/06/24 13:56 Time: 13:58 03/06/24 13:56 Patient unable to answer at this time (ie. confused, unrespo /Reproduction History /Reproductive History - billboard poster helper: /Reproductive Hx- billboard poster helper Hx Now Yes: 18 WEEKS 03/06/24 13:56 Gestational Age (in weeks): EDC: Hx Hx Para Hx Section SAB No 03/06/24 13:56 Active Medications Active Medications: Current Medications Generic Name Dose Route Start Last Admin Trade Name Freq PRN Reason Stop Dose Admin Lactated Ringer's 1,000 mls @ 15 mls/hr 03/15/24 06:15 IV 03/20/24 19:34 .Q48H [facility] Protocol PFSH Medical History Back pain Syncope Non-smoker History of edema Home Medications ?Medication ?Instructions ?Recorded ?Last Taken ?Type calcium 600 mg capsule 600 mg PO DAILY 03/06/24 Unknown History omega 3 350 mg-dha 235 mg-epa 90 1 cap PO DAILY 03/06/24 Unknown History mg-fish oil 597 mg capsule,delay rel ([place]-3) vit no.95-ferrous 1 tab PO DAILY 03/06/24 Unknown History fumarate 28 mg-folic acid 800 mcg tablet () Allergy/AdvReac Type Severity Reaction Status Date / Time magnesium Allergy Intermediate Other Verified 03/06/24 13:53 Family History Sister Breast cancer Grandmother Cancer Surgical History No history of previous surgery Social History household members: spouse and children Smoking Status: Never smoker alcohol intake: never Review of Systems (Anesthesia) ROS Narrative System reviewed and no additional complaints, except as documented.
[2024-03-15] MEDS: Lactated Ringers 1,000 ML 15 ML IV (07:07)
--- NOTE | 2024-03-15 07:09 | PCM.HP.BLA ---
History and Physical Date of Admission: 03/15/24 Date of Service: 01/01/24 MR#: [id number] Acct: [id number] Name: HAL SHARIF Rep #: [id number] : 1990 Provider: Dr. Juan J Pierre MD Age/Sex: 33/F Location: [facility] [place] Status: Signed Intake Vital Signs 12/31/2412:57 Height 5 ft 5 in Weight: 140 lb BMI 23.3 BP 126/76 H Blood Pressure Location Rt brachial Position Sitting Respiration 18 Pulse 60 Pulse Source Monitor Temp 97.2 F L Temp Source Temporal Pulse Oximetry (%) 99 Oxygen Delivery Method room air Intake Visit Reasons: THYROID NODULE Chief Complaint: thyroid nodule Accompanied by: Allergies No Known Allergies Allergy (Unverified 01/01/24 13:59) Medications ?Medication ?Instructions ?Recorded ?Confirmed ?Type NK 01/01/24 01/01/24 History Have you fallen in the past year?: No HPI HPI HPI: Patient is a 33-year-old female who presents for newly?diagnosed right thyroid nodule. They are referred for surgical consultation from SHAREE Maria. This was discovered during routine physical exam. Patient shares that she is able to feel this nodule now that the swelling is gone down , but otherwise declares that she does not feel as though anything additional is wrong. She does note that she and her were just given word that they are expecting their third child and that she is 9 weeks . They do not experience difficulty with swallowing. They do not complain of a new cough. They do not appreciate new voice changes. They do not have a history of snoring/sleep apnea. Additionally, their weight has been stable and they do not have a history of weight gain/loss or an inability to lose despite intentional effort. There is some history of recent fatigue, however, this report finds itself couched in the context of patient being a mother of 2 children under the age of 5 and newly . They do not have a history of heat or cold intolerance. Other symptoms include: Denies any experience of altered GI habits, palpitations, difficulty concentrating, or new anxiety. They do not have a family history of thyroid disorders or endocrinopathies. There is no history of prior radiation exposure. Previous work-up has included thyroid ultrasound. This study was performed on 11/30/2023 and showed a right thyroid lobe measuring 4.6 x 2.5 x 2.8 cm. Within this lobe radiology identified to nodules measuring 2.8 x 2.0 x 2.2 cm and was given a TI-RADS 5 rating on the account of punctate echogenicities and being both hypoechoic and irregular . The second right-sided thyroid nodule was described as similar but measured 1.7 x 1.1 x 1.1 cm and was also given a TI-RADS 5 designation. The left thyroid lobe measured 4.5 x 1.4 x 1.6 cm. Within this lobe radiology identified a cyst measuring 0.5 x 0.2 x 0.5 cm with a TI-RADS 1 designated. An FNA has not been performed. Other tests include: TSH: 1.51, free T4: 1.5, calcium: 9.3 (12/05/2023) ROS General General: No weight change, appetite, fatigue, colon cancer, breast cancer or weakness HEENT HEENT: No difficulty swallowing, eye injury, eye surgery, swollen glands or hoarseness Endo Endocrine: No thyroid disease, diabetes mellitus, thyroid cancer, Hair loss, heat intolerance or cold intolerance Skin Skin: No rash or changing moles Musc Musculoskeletal: Yes back problems; No arthritis, rheumatoid arthritis, gout or joint pain Additional Details: bulged disc Cardio Cardiovascular: No murmur, pacemaker, heart disease, atrial fibrillation, high blood pressure, heart attack, heart stent, palpitations, shortness of breat with exertion or chest pain Psych Psychiatric: No depression, anxiety or hearing voices Resp Respiratory: No shortness of breath, No sleep apnea, No cough, No COPD, No asthma, No emphysema and No wheezing Gastro Gastrointestinal: No abdominal pain, No nausea or vomiting, No diarrhea, No constipation, No blood in stool, No acid reflux, No hemorrhoids, No ulcers, No gallbladder problem and No black,tarry stools Rosendo Hematologic: No blood thinners, No blood disorders, No bleeding, No anemia and No blood clots Neuro Neurologic: No numbness, No tingling and No weakness Exam Const General: cooperative, healthy appearing, comfortable, no acute distress and not anxious Orientation: alert, awake and oriented x3 Neck Other: Slender neck with dominant firm nodule palpable on the right. This is nontender with palpation. I do not palpate any discrete lymphadenopathy. By my own ultrasound exam I confirm the outside ultrasound findings with 2 irregular nodules located in the mid polar (dominant/larger nodule) and in the inferior pole Office Procedures Fine Needle Aspiration Provider Documentation Details: Indication: Right thyroid nodules After obtaining patient consent and conducting a timeout amongst those present, the procedure was commenced by locating the suspicious nodules in the mid and inferior pole of the right thyroid lobe using ultrasound. Superficially, the skin was cleaned with an alcohol swab and a wheal of local anesthetic was created after instilling 1% lidocaine. A total volume of 6 ml 1% lidocaine was required for this procedure. Then, under ultrasound guidance, multiple passes were made into the inferior thyroid nodule using a 25-gauge needle. Once an adequate specimen was detected within the hub of the needle and bottom of the syringe, this was handed off the field. A second pass was made in a similar manner using a 22-gauge needle. This specimen, also, was passed off the field for cytopathologic evaluation. A third pass was made with a second 22-gauge needle for Afirma/genomic sequencing banking should patient have an atypical cytopathology result. This overall sequence was then repeated for patient's mid polar nodule with 3 separate passes. External pressure was applied to the neck to assist with hemostasis. A quick examination was made with ultrasound to exclude any evidence of hematoma formation. The mid polar nodule was noted to exhibit significant vascularity, however, there is no signs of extravasation. Then the surface of the neck was cleaned, dried, and a bandage was applied. Patient was gradually returned to the sitting position and after short period of monitoring was dismissed. Wound care instructions and expectations regarding pathologic processing were discussed prior to dismissal. Complications: None Estimated blood loss: 2 ml Alert Stitch Cleaner Alert Billing: Yes FNA [id number] Thyroid (X 2) Procedure Time Out Time Out Informed consent given: Yes Consent signed: Yes Time out checklist: patient, procedure, site marked/identified, positioning of patient, supplies available, allergies confirmed and team agrees on procedure Time out staff in room: Yes Time out verified: Yes Time out date: 01/01/24 Time out time: 15:21 Assessment and Plan Assessment and Plan (1) Multiple thyroid nodules: Status: Acute Comment: Patient is a 33-year-old, euthyroid from an endocrine standpoint, female who presents for newly-diagnosed right thyroid nodules. Unfortunately, these are highly suspicious both by exam and by ultrasound. Thus, after a brief overview of the prevalence of thyroid nodules and their rating with TI-RADS, I extended the radiologist's recommendation to pursue biopsy. Patient was receptive and the procedure was undertaken uncomplicated fashion during today's visit. Complete details were given in the procedures section of this note. Patient did have a number of questions related to her and what this would mean in the event of a malignant diagnosis. I tried to defer these questions ultimately until we had a tissue diagnosis, however, I mentioned that we may need to consider a consultation with endocrinology and/or more surgery upfront as she would not be a candidate for immediate postop radioactive iodine therapy. Patient seemed grateful for this consideration. Lastly, I discussed with her the procedure for dealing with any atypia as noted on cytopathology and the inherent lead time delay that is incurred with sending biopsies for next generation sequencing. Plan: ? Patient encouraged to keep head upright and ice to biopsy site ? Follow-up with patient regarding cytopathology diagnosis and any need for further submission to genetic testing I have examined the patient the following changes are noted: Patient confirms that she is feeling well today. heart tones were obtained and were reassuring. I had a discussion with patient's manager intensive care unit yesterday to come to the common understanding of what will be done perioperatively to ensure the wellbeing of her fetus now at 19 weeks gestation. I also discussed with . and Mrs. Sharif that I would recommend addending our consent to provide for the ability to perform a central neck dissection if she is found to have grossly positive level 6 nodes (that would thereafter be confirmed with frozen section). I recommended this on the basis of trying to minimize her morbidity through any reoperation. I also discussed the implications of positive nodes being likely completion thyroidectomy and radioactive iodine therapy after delivery of her child. Patient and her were given the opportunity ask questions and we again discussed why a thyroid lobectomy is a minimum oncologic procedure available to her. Lastly we reviewed postoperative care instructions. No further questions were offered so we will now proceed to the operating room for right thyroid lobectomy with intraoperative nerve monitoring and possible central lymph node dissection.
--- NOTE | 2024-03-15 09:00 | PARA_PTH ---
PATHOLOGY RESULTS PATIENT: HAL SHARIF LOC: [facility] [place] U#:[id number] AGE/SX: 33/F ROOM: RE03/15/[address]: Dr. Juan J Pierre MD : 1990 BED: DIS: 03/15/2024 SPEC #: [id number] RECD: 03/15/24 10:29 STATUS: GOYO TAVARES #: [id number] RY: 03/15/24 09:[address]: Juan J Pierre DEPT: SURGICAL PATHOLOGY RECD BY: Kris Goodman ENTERED: 03/15/24 10:30 SP TYPE: PARATHY OTHR DR: SHAREE Alejandre Tissues: Parathyroid Thyroid gland, NOS Procedures: Frozen Section (charge) Surgery Specimen Level IV HEADER OPERATION: Thyroid lobectomy with isthmus and IONM PRE-OP DIAGNOSIS: Multiple thyroid nodules TISSUE SUBMITTED: A- Rule out parathyroid, B- Right thyroid lobe and isthmus *stitch pro right superior pole FROZEN SECTION DIAGNOSIS A. Rule out parathyroid, biopsy: Parathyroid tissue. Case has been reviewed in consultation with Dr. Ochoa who concurs with the above diagnosis. IDC:AM 03/15/2024 MICROSCOPIC DIAGNOSIS A. Rule out parathyroid, biopsy: A fragment of unremarkable parathyroid tissue. B. 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 See comment and cancer summary in the comment section. Florin 03/20/2024 COMMENT B. The specimen is sent to [facility] for expert opinion and reviewed by Dr. Fenton and above diagnosis is rendered. Complete report is viewable in patient's EMR. B. THYROID CANCER SUMMARY Procedure: Right lobectomy and isthmectomy Tumor Focality: Unifocal Tumor Site: left lobe Tumor Size: 3.2 x 2.0 x 1.5 cm Histologic Type: Papillary carcinoma, classic type. Margins: Tumor is focally involving blue inked margin (anterior margin) and it is very close to the posterior margin. Angioinvasion: Not identified Lymphatic Invasion: Not identified Perineural invasion: Not identified Regional Lymph Nodes: No lymph nodes are submitted or found Extrathyroidal Extension: not identified. Ancillary Studies: Immunohistochemistry ([id number]) supports the above diagnosis. Additional Pathologic Findings: - multinodular goiter. 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 Clinical History: Please make reference to previous specimen [id number] right mid thyroid nodule, fine needle aspiration with diagnosis of non-diagnostic specimen, right lower thyroid nodule, fine needle aspiration with diagnosis of atypical follicular cells of undetermined significance and [id number] right cervical lymph node, zone 6, negative for malignant cells and left cervical lymph node, zone3, negative for malignant cells. PATHOLOGIC STAGE: pT2 pNx pMx The above summary is in compliance with [employer] (CAP) Cancer Protocols Checklist and [place] Joint Committee on Cancer (AJCC), Staging Manual, 8th Ed. This case has been reviewed in consultation with Dr. Butler who concurs with the above diagnosis. IDC:PW MICROSCOPIC DESCRIPTION Slides are reviewed. GROSS DESCRIPTION A. Received fresh for frozen section diagnosis labeled with the patient's name is a specimen designated Parathyroid tissue. The specimen consists of a piece of brooks soft tissue measuring 0.5 x 0.3 x 0.2cm and weighing 0.014gm. The entire specimen is submitted for frozen section diagnosis in one cassette. LADARIUS/ 03/15/2024 B. Received in fixative is one container labeled with the patient's name and designated Right thyroid lobe and isthmus. The specimen consists of a thyroid lobectomy specimen weighing 16.7gm. The right thyroid lobe measures 5.0 x 3.0 x 2.5cm and isthmus measures 1.5 x 1.4 x 0.5cm. Specimen is inked as follows, posterior surface - black, anterior surface - blue and isthmus resection margin - yellow. Sections reveal an irregular brooks-white solid mass in the middle to lower lobe of the thyroid lobe measuring 3.2 x 2.0 x 1.5cm. Focal area of calcification is also noted in the mass. The entire specimen is submitted in twelve cassettes as follows: 1- isthmus, 2-12- right thyroid lobe. Cassette 2 containing most superior portion and cassette 12 containing most inferior portion. Cassettes 5 and 6 are submitted after decalcification. 03/18/2024 TC:0 CPT:88469,45535,12815,83589
[2024-03-15] MEDS: Bupivacaine 0.25% 30 ML Vial (10:52)
--- NOTE | 2024-03-15 11:01 | OP.PCM_ITS ---
Operative Report (Standard) Operative Information Surgery/Procedure Performed: 1. Right thyroid lobectomy with isthmusectomy using intraoperative nerve monitoring 2. Autotransplantation of right inferior parathyroid to right sternohyoid muscle Surgeon: Juan J Pierre Date of Procedure: 03/15/24 Procedure Start Time: 08:11 Procedure Stop Time: 11:15 Pre-Operative Diagnosis: Suspicious right thyroid nodule with genetic testing and atypia on cytopathology. Post-Operative Diagnosis: Same Select all DRAINS/GRAFTS/IMPLANTS that apply: None Type of Anesthesia: General/Supplemental Special Medications: None Estimated Blood Loss: 25 Specimen collected: Yes Description of specimen(s) removed: Right thyroid lobe with stitch marking right superior pole Description of surgery: After appropriate identification in the preoperative holding area, the patient was brought to the operating room where she was positioned supine on the operating room table. Induction of general endotracheal anesthetic was begun and a NIMS tube was placed under glidescope view to confirm coaptation with the vocal cords anteriorly. Tube was then secured and the patient was positioned with a shoulder roll so that her head was in extension but supported. The Nims electrodes were placed and connected to the monitor. We had appropriate resistance showing on the monitor and tapping at the level of the cricoid produce a graphical representation of the impulse on the monitor. Patient's neck was then prepped and draped in usual sterile fashion and a formal timeout was conducted from those present. The lowest skin fold to the sternal notch was selected for incision site (this resided approximately [2 fingerbreadths cephalad to the notch). An incision was extended for 2.5 cm on either side of midline. Electrocautery was used to deepen this incision through the level of the platysma. Subplatysmal flaps were raised with the use of electrocautery and blunt dissection. The strap muscles were then divided along the median raphe bringing us down to the level of the thyroid. Capsular attachments to the thyroid were divided with the use of LigaSure or bluntly swept away. Patient's superior pole was noted to extend superiorly in the neck more so than usual but gradually we were able to relieve the sternothyroid attachments to the lateral surface and improve mobility of the gland. Retractors were placed providing excellent visualization of the right superior pole of the thyroid. The vessels of the superior pole were sequentially ligated with the use of the LigaSure device. We then moved inferiorly and divided those polar vessels with LigaSure. Notably, the level 6 lymph node basin was readily visible to us at the latitude of her incision. During this division, I grossly identified what I suspected to represent the inferior parathyroid gland adherent to the anterior lateral border of the thyroid capsule. With this location there is no way to preserve its vascular supply so I elected to dissect out the corner of this structure, place a clip across its distal third and sharply remove a sample for frozen section. This was submitted to pathology to confirm parathyroid tissue. With the poles freed the thyroid was mobilized medially. I bluntly the remaining strap muscle fibers from the thyroid capsule and using blunt dissection parallel to the presumed course of the recurrent laryngeal nerve, exp osed the tracheoesophageal groove. Here I encountered a positive signal for the right recurrent laryngeal nerve and was shortly thereafter able to visualize the nerve. Exposure was somewhat more challenging on the account of a exceptionally large tubercle of Zuckerkandl. The nerve positively identified, I set about relieving the attachments of the thyroid gland to the underlying trachea with the use of LigaSure. As we approached the nerve insertion of the cricothyroid membrane I checked the nerve signal before dividing additional tissue but found that the signal was lost. Therefore, I meticulously proceeded with dissection layer by layer until I had dissected all of the tissue anterior to the nerve. Here I found the thyroid densely adherent to the nerve but could visualize the nerve coursing toward the thyroid and then hooking posteriorly to inserting the cricothyroid membrane. With a visibly intact, I did determine that there must have been some traction paresis on the nerve and I used a new scalpel blade to sharply remove some of the attachments of the thyroid to the perineurium. Still, the area of the ligament of Shaw was densely adherent to the nerve so I elected to leave a minuscule amount of thyroid tissue intact using 4-0 silk ligatures. This area around the ligament of Shaw was highly vascular and this process proved tedious. The recurrent laryngeal nerve signal was checked prior to the division of any thyroid tissue (distally I still had a Nims signal on her nerve monitor). Eventually, I was able to free the thyroid tissue from the anterior surface of the trachea and its proximity to the nerve so I could then employ use of electrocautery for ongoing dissection anteriorly. In the cephalad portion of the incision, I encountered what appeared to be a pyramidal lobe and dissected this free of the trachea and took this with the specimen. Once I, again, assured clearance from the recurrent laryngeal nerve, the remaining thyroid tissue was removed from the anterior surface of the trachea with electrocautery to include the entirety of the thyroid isthmus. The specimen was divided with the LigaSure device for hemostasis. Shortly before this complete removal of the right thyroid lobe, pathology reported on our frozen section that the submitted specimen was positive for parathyroid tissue. Thus the remaining parathyroid tissue was dissected free of the thyroid capsule from the specimen and placed in a saline soaked gauze for later transplantation. The right superior pole was marked with a 3-0 Vicryl stitch and passed off the field for permanent section. The surgical cavity was then inspected for hemostasis and it was found to largely be intact. Noting patient's preoperative lymph node mapping studies that showed a abnormal lesion of the right level 6 lymph node basin I set about palpating both the pretracheal and paratracheal spaces. However, I did not feel any firm lymphadenopathy and only identified patient's normal?riding brachiocephalic artery and right carotid artery. I also performed some limited blunt dissection by opening the space just medial to the right carotid but, again, did not grossly identify any abnormal lymph node tissue. Following this inspection I again confirmed hemostasis and the presence of a right superior parathyroid gland. We also confirmed signal of the distal right recurrent laryngeal nerve. Satisfied with this result, the strap muscles were closed with a running 3-0 Vicryl stitch leaving a small gap at the inferior aspect of the suture line. Then I asked for the right inferior parathyroid specimen to be brought onto the field where I minced and into many pieces with a pair of tenotomy scissors. I then this total volume into 2 separate aliquots which were implanted into the right sternohyoid muscle by first bluntly developing small pockets anteriorly and clipping these pockets closed with medium titanium clips. Hemostasis was again confirmed and the platysmal flaps were closed with interrupted 3-0 Vicryl. Some additional local anesthetic was infiltrated throughout the dermis (for a total volume of 12 mL) and the skin was closed in a subcuticular fashion using 4-0 Monocryl. Steri-Strips were applied. Telfa and Tegaderm were used as a dressing. The patient was then awakened from anesthetic without event and was taken to PACU for ongoing recovery. Surgical Findings: ? Elongated thyroid lobe with prominent right tubercle of Zuckerkandl ? Thyroid densely adherent to distal insertion point of right recurrent laryngeal nerve ? Parathyroid gland adherent to anterior aspect of right inferior pole Reproductive Healthcare Assistant infant nanny: Yes Director Of Transportation: Kanwal Ling Tasks completed by first press operator: Opening, Hemostasis: Electrocautery and Retracting Complications Complications: Yes Complication Details: Loss of signal to proximal right recurrent laryngeal nerve (distally there is still signal) Admit VTE Documentation VTE Mechan Device Prophylaxis: SCD's
--- NOTE | 2024-03-15 11:04 | DCINST_ITS ---
Discharge Instructions Diet Discharge Diet: No restrictions (However recommend a liquid to soft diet initially postoperatively) Activity Discharge Activity: May Not Drive (While it remains difficult to check blind spots quickly) May shower in (days): 2 Ice area for (Minutes): 20 Lifting Restrictions: No lifting greater than 15 pounds for 2 weeks after surgery Dressing / Incision Call your doctor if your incision/area has: Continuous Slow Oozing, Sudden Increased Bleeding, Increased Pain/ Swelling, Increased Redness and Swelling at the incision site Call your doctor if you observe: Numbness or Tingling Remove Dressing in: 2 days (Please leave Steri-Strips intact until they fall off spontaneously or are taken off at your follow-up visit) Cleanse incision/area with: Soap & Water Follow Up Care Please Follow Up With: Juan J Pierre MD When: 7 days postop Test Results: Test results from this visit will be discussed in further detail at your follow- up appointment, if applicable. Discharge Plan Admission Primary Reason for Your Visit: Right thyroid lobectomy Attending Provider: Juan J Pierre Primary Care Provider: Valeria Vidal Instructions Print Language: [place] Discharge Orders/Prescriptions Prescriptions: Continued PNV cmb#95-ferrous fumarate-FA [] 28 mg iron- 800 mcg tablet 1 tab PO DAILY [place]-3 350 mg-235 mg- 90 mg-597 mg capsule,delayed release(DR/EC) 1 cap PO DAILY calcium 600 mg capsule 600 mg PO DAILY Referrals / Follow Up: Valeria Vidal PA [Primary Care Provider] - Disposition Disposition (needs filled in before D/C Order can be placed): Home, Self Care
--- NOTE | 2024-03-15 11:14 | PCM.POST.ANE ---
Anesthesia: Postop Eval I Current Vital Signs Temperature: 98.9 F Pulse Rate: 109 Blood Pressure: 111/62 Respiratory Rate: 16 Pulse Ox: 97 Oxygen Delivery Method: Room Air Assessment Airway patent: No Spontaneous unlabored respirations: No Mental status: Awake and Calm nausea: No Vomiting: No Anesthesia Complication: No Fluid Hydration Crystalloid volume administer (ml): 800 Total IV fluid infused: 800 Progress Note Anesthesia document: Postop Eval 1 completed: No
--- NOTE | 2024-03-15 11:21 | SUR.PHASEI ---
awaiting OB RN for FHT monitoring
[2024-03-15 12:59] LABS: Bedside Glucose 108 mg/dL (74-106)
--- NOTE | 2024-03-15 13:57 | SUR.PHASEII ---
Hue from OB was over to do monitoring on fetus post op, states no concerns. call placed to life management teacher, Marguerite Ryan, . left message.
--- NOTE | 2024-03-15 14:19 | NURSING ---
OB nurse to AC to monitor FHR. External FM placed on abdomen. FHR 140's. Difficulty keeping FHR continuously tracing d/t gestational age and activity. Pt confirming movement as well. No concerns per OB. Pt also stating she has polyhydramnios. No ctx palpated. Pt also confirms no ctx. Reported results to AC nurse.
--- NOTE | 2024-03-15 14:24 | NURSING ---
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 Message left to call [facility].
--- NOTE | 2024-03-15 16:04 | POSTOPAN2_ITS ---
Anesthesia Postop Eval I Sum Postop Eval Completion status Anesthesia document: Postop Eval 1 completed: No Anesthesia Postop Eval I Summary Anesthesia Postop Eval I Summary: Anesthesia Postop Eval I: Assessment Summary Airway patent No 03/15/24 11:15 TEACHERS' [email or web address].[email or web address] Spontaneous unlabored No 03/15/24 11:15 TEACHERS' ASSISTANT.SCHR respirations Mental status Awake,Calm 03/15/24 11:15 TEACHERS' ASSISTANT.SCHR nausea No 03/15/24 11:15 TEACHERS' ASSISTANT.SCHR Vomiting No 03/15/24 11:15 TEACHERS' ASSISTANT.SCHR Anesthesia Postop Eval I: Fluid Summary Crystalloid volume administer 800 03/15/24 11:15 TEACHERS' ASSISTANT.SCHR (ml) Colloids volume administered ( ml) Blood Product volume administered (ml) Total IV fluid infused 800 03/15/24 11:15 TEACHERS' ASSISTANT.SCHR Anesthesia Postop Eval I: Summary Notes Anesthesia Complication No 03/15/24 11:15 TEACHERS' ASSISTANT.SCHR Anesthesia Complication Comment: Post-operative progress note Anesthesia: Postop Eval II Evaluation Mental status: Awake and Calm Pain Level: 1 nausea: No Vomiting: No Progress Note Post-operative progress note: heart monitoring performed postop by OB nurse Complications Anesthesia Complication: No
--- NOTE | 2024-03-15 16:04 | PCM.POSTANE2 ---
Anesthesia Postop Eval I Sum Postop Eval Completion status Anesthesia document: Postop Eval 1 completed: No Anesthesia Postop Eval I Summary Anesthesia Postop Eval I Summary: Anesthesia Postop Eval I: Assessment Summary Airway patent No 03/15/24 11:15 CONDITIONER TUMBLER [email or web address].[email or web address] Spontaneous unlabored No 03/15/24 11:15 CONDITIONER TUMBLER OPERATOR.SCHR respirations Mental status Awake,Calm 03/15/24 11:15 CONDITIONER TUMBLER OPERATOR.SCHR nausea No 03/15/24 11:15 CONDITIONER TUMBLER OPERATOR.SCHR Vomiting No 03/15/24 11:15 CONDITIONER TUMBLER OPERATOR.SCHR Anesthesia Postop Eval I: Fluid Summary Crystalloid volume administer 800 03/15/24 11:15 CONDITIONER TUMBLER OPERATOR.SCHR (ml) Colloids volume administered ( ml) Blood Product volume administered (ml) Total IV fluid infused 800 03/15/24 11:15 CONDITIONER TUMBLER OPERATOR.SCHR Anesthesia Postop Eval I: Summary Notes Anesthesia Complication No 03/15/24 11:15 CONDITIONER TUMBLER OPERATOR.SCHR Anesthesia Complication Comment: Post-operative progress note Anesthesia: Postop Eval II Evaluation Mental status: Awake and Calm Pain Level: 1 nausea: No Vomiting: No Progress Note Post-operative progress note: heart monitoring performed postop by OB nurse Complications Anesthesia Complication: No
== END 2024-03-15 15:07 | disposition home or self-care (01) ==
LOC: SDC 06:00 → AC 06:01
PROVIDERS: PCP Physician Assistant; Referring Provider Surgery; Visit Provider Surgery
PROC: (CPT 60220; principal; 2024-03-15 07:15)
DX: O9A.111 Malignant neoplasm complicating pregnancy, first trimester (principal); C73 Malignant neoplasm of thyroid gland; E04.2 Nontoxic multinodular goiter; Z3A.09 9 weeks gestation of pregnancy; O99.281 Endocrine, nutritional and metabolic diseases complicating pregnancy, first trimester
CPT/HCPCS: 60220; 00320; 82962; 88305; 88331; 88341; 88342; A4648; J7120; J2405

== ENCOUNTER → 2024-04-16 | Outpatient (CLI) | payer SELFPAY ==
[2024-04-16 14:56] LABS: Free T3 1.6 pg/mL (2.18-3.98); T4 Total, Thyroxin 12.3 ug/dL (4.8-13.9)
[2024-04-16 14:59] LABS: Calcium,Total 9.1 mg/dL (8.5-10.1)
== END | disposition home or self-care (01) ==
LOC: PAVLAB 13:58
PROVIDERS: PCP Physician Assistant; Referring Provider Surgery; Visit Provider Surgery
DX: E04.2 Nontoxic multinodular goiter (principal)
CPT/HCPCS: 36415; 82310; 84436; 84443; 84481

== ENCOUNTER → 2024-10-01 | Outpatient (CLI) | payer SELFPAY ==
--- NOTE | 2024-10-01 16:23 | US_ITS ---
PROCEDURE: THYROID 10/01/2024 REASON FOR EXAM: ASSESS FOR LYMPHADENOPATHY OR THYROID NODULES TECHNIQUE: High-frequency thyroid ultrasound, including grayscale and color-flow images. REFERENCE LINKS: TI-RADS Chart: [email or web address] TI-RADS Calculator Tool with Reference Images: [email or web address] FINDINGS: Right thyroid lobe: Prior resection. Left thyroid lobe size: 4.5 cm x 1.7 cm 1.6 cm cm Isthmus: 0.1 cm Background parenchymal echotexture is homogeneous. Nodules: . Lobe: Left, Location: Upper pole, Size: 5 mm x 6 mm x 3 mm cm, Stability: Stable Composition: Cystic or mostly cystic (+0) Echogenicity: Anechoic (+0) Margin: Smooth (+0) Shape: Wider than tall (+0) Echogenic Foci: None (+0) TI-RADS: <2 = TR 1 * 2 = TR 2 * 3 = TR 3 * 4-6 = TR 4 * >6 = TR 5 There is evidence of a 1.4 cm x 0.6 cm x 0.5 cm right probably benign lymph node. Several small left cervical lymph nodes are seen. The largest measures 1.6 cm x 0.7 cm 0.2 cm. US/Thyroid IMPRESSION: Status post right thyroid resection. Stable subcentimeter cyst in the left lobe. Findings suggestive of small bilateral cervical lymph nodes. RECOMMENDATION: Based on most suspicious nodule. Nodule size = largest diameter Only evaluate nodule if =>5 mm. Growth > 20% in 2 dimensions = worsening. Follow up to 4 nodules. Recommend biopsy for no more than 2 nodules. Reading Location: [facility]
== END | disposition home or self-care (01) ==
LOC: US 16:18
PROVIDERS: PCP Physician Assistant; Referring Provider Internal Medicine Endocrinology, Diabetes & Metabolism; Visit Provider Internal Medicine Endocrinology, Diabetes & Metabolism
DX: C73 Malignant neoplasm of thyroid gland (principal); Z90.09 Acquired absence of other part of head and neck
CPT/HCPCS: 76536

== ENCOUNTER → 2024-11-13 | Outpatient (CLI) | payer SELFPAY ==
[2024-11-13 15:22] LABS: PTHIN 41 pg/mL (11-61)
[2024-11-15 17:08] LABS: Anti-Thyroglobulin AB < 1.0 IU/mL (0.0-0.9); Thyroglobulin, Serum Qt. 6.3 ng/mL (1.5-38.5)
== END | disposition home or self-care (01) ==
LOC: LAB 13:35
PROVIDERS: PCP Physician Assistant; Referring Provider Internal Medicine Endocrinology, Diabetes & Metabolism; Visit Provider Internal Medicine Endocrinology, Diabetes & Metabolism
DX: E89.0 Postprocedural hypothyroidism (principal); C73 Malignant neoplasm of thyroid gland
CPT/HCPCS: 36415; 83970; 84432; 84439; 84443; 86800

== ENCOUNTER → 2025-04-29 | Outpatient (CLI) | payer SELFPAY ==
[2025-05-01 09:08] LABS: Thyroglobulin, Serum Qt. 9.9 ng/mL (1.5-38.5)
== END | disposition home or self-care (01) ==
LOC: LAB 10:43
PROVIDERS: PCP Physician Assistant; Referring Provider Internal Medicine Endocrinology, Diabetes & Metabolism; Visit Provider Internal Medicine Endocrinology, Diabetes & Metabolism
DX: E89.0 Postprocedural hypothyroidism (principal); C73 Malignant neoplasm of thyroid gland
CPT/HCPCS: 36415; 84432; 84439; 84443; 86800